=== PATIENT | female | born 1965 | race Caucasian/White ===

== ENCOUNTER 2021-11-14 22:41 | Emergency (ER) | payer OTHER ==
[~2021-11-14] VITALS: Ht 172.7 cm; Wt 75.2 kg
[~2021-11-14 22:41] MED LIST: HYDR-3068 PO; PROM25VI IJ; SULF500T7 PO
--- NOTE | 2021-11-14 22:44 | PHYS DOC ---
Past History Past Medical History: Other Past Medical History Ulcerative colitis Past Surgical History: No Surgical History Smoking: Non-smoker Alcohol Use: None Drug Use: None General Adult HPI: HPI: ".. I ve got ulcerative colitis.. I been having some cramping.. I did go to the urgent care earlier this week end .. .. and got fluids.. and a steroid taper.. I have a lot more bleeding today.. and cramping.." Patient is a 56 year old female who presents with above hx and complaints of blood in stool. Patient has long history of ulcerative colitis. Has not had a colonoscopy in excessive 7 years. Patient's last flare was 2018. Patient previously on Sulfasalazine. Patient has not been on any suppressive meds. No recent travel. No specific ill contacts. Has gotten COVID vaccination. Has not gotten a flu vaccination. No recent travel. No history of bad food intake. No history immunosuppression. Review of Systems: Review of Systems: Constitutional: Denies fever or chills Eyes: Denies change in visual acuity HENT: Denies nasal congestion or sore throat Respiratory: Denies cough or shortness of breath Cardiovascular: Denies chest pain or edema GI: Complains of abdominal pain, nausea, and some bright red blood in stools. Vomiting, bloody stools or diarrhea : Denies dysuria Musculoskeletal: Denies back pain or joint pain Integument: Denies rash Neurologic: Denies headache, focal weakness or sensory changes Endocrine: Denies polyuria or polydipsia Lymphatic: Denies swollen glands Psychiatric: Denies depression or anxiety Family History: Family History: Noncontributory to presentation Current Medications: Current Meds: See nursing for home meds Allergies: Allergies: Allergies Coded Allergies Type Severity Reaction Last Updated Verified No Known Drug Allergies 03/09/14 No Physical Exam: PE: Constitutional: Moderate acute distress, non-toxic appearance. [] HENT: Normocephalic, atraumatic, bilateral external ears normal, oropharynx moist, no oral exudates, nose normal. [] Eyes: PERRLA, EOMI, conjunctiva normal, no discharge. [] Neck: Normal range of motion, no tenderness, supple, no stridor. [] Cardiovascular:Heart rate regular rhythm, no murmur [] Lungs & Thorax: Bilateral breath sounds clear to auscultation [] Abdomen: Bowel sounds hyperactive, soft, generalized tenderness, no masses, no pulsatile masses. Generlized tenderness. Skin: Warm, dry, no erythema, no rash. [] Back: No tenderness, no CVA tenderness. [] Extremities: No tenderness, no cyanosis, no clubbing, ROM intact, no edema. [] Neurologic: Alert and oriented X 3, normal motor function, normal sensory function, no focal deficits noted. [] Psychologic: Affect anxious, judgement normal, mood normal. [] EKG: EKG: [] Radiology/Procedures: Radiology/Procedures: [[address] [address] IMAGING REPORT Signed PATIENT: RONALD HYMAN ACCOUNT: [id number] : 1965 LOCATION: ER AGE: 56 SEX: F EXAM STATUS: REG ER ORD. PHYSICIAN: LALITO CAMPOS MD REASON: UC, pain, bleeding Omni 300 75cc PROCEDURE: CT ABD PELV W/ORAL&IV CONTRAST CT ABDOMEN+PELVIS W History: Reason: UC, pain, bleeding Omni 300 75cc / Spl. Instructions: / History: Technique: After the administration of intravenous contrast, CT imaging was performed of the abdomen and pelvis. Multiplanar images are reviewed. Exposure: One or more of the following individualized dose reduction techniques were utilized for this examination: 1. Automated exposure control 2. Adjustment of the mA and/or kV according to patient size 3. Use of iterative reconstruction technique. Comparison: March 09, 2014 Findings: Lower chest: No consolidation or pleural effusion. Abdomen and pelvis: Right hepatic lobe cyst measures 1.7 cm. The liver, adrenal glands, pancreas and gallbladder are unremarkable. No biliary ductal dilatation. Patent portal vein. No renal calculus. No hydronephrosis. Decompressed urinary bladder. Multifocal colonic wall thickening moderate within the mid aspect and severe within the ascending colon. There is adjacent inflammatory changes. Normal appendix. No evidence of bowel obstruction. Oral contrast opacifies the distal small bowel. Small mesenteric and retroperitoneal lymph nodes. No ascites. No intra-abdominal abscess. No pneumatosis or pneumoperitoneum. Bones: No pathologic osseous lesions. Impression: 1. Multifocal colonic wall thickening with adjacent inflammatory changes most prominent within the ascending colon, compatible with history of ulcerative colitis. Electronically signed by: Yunier Negron DO (11/15/2021 1:29 AM) [facility] DICTATED AND SIGNED BY: YUNIER NEGRON DO DATE: 11/15/21124 CC: LALITO CAMPOS MD; PCP,NO ~MTH0 0 ][place] [address] IMAGING REPORT Signed PATIENT: RONALD HYMAN ACCOUNT: [id number] : 1965 LOCATION: ER AGE: 56 SEX: F EXAM STATUS: REG ER ORD. PHYSICIAN: LALITO CAMPOS MD REASON: Severe abdomen pain PROCEDURE: ACUTE ABDOMEN SERIES XR ABDOMEN COMP ACUTE History: Reason: Severe abdomen pain / Spl. Instructions: / History: Technique: Upright and supine views the abdomen. Comparison: None. Findings: No consolidation or pleural effusion. No pneumothorax. Normal heart size. No pneumoperitoneum. Mild small bowel gas. Air and stool scattered throughout the colon. Impression: 1. Nonobstructed bowel gas pattern. Electronically signed by: Yunier Negron DO (11/15/2021 12:13 AM) [facility] DICTATED AND SIGNED BY: YUNIER NEGRON DO DATE: 11/15/2111 CC: LALITO CAMPOS MD; PCP,NO ~MTH0 0 Heart Score: C/O Chest Pain: N/A HEART Score for Chest Pain: HEART Score for Chest Pain Response (Comments) Value History Slighlty/Non-Suspicious 0 ECG Normal 0 Age < 45 0 Risk Factors No Risk Factors 0 Troponin < Normal Limit 0 Total 0 Risk Factors: Risk Factors: DM, Current or recent (<one month) smoker, HTN, HLP, family history of CAD, obesity. Risk Scores: Score 0 - 3: 2.5% MACE over next 6 weeks - Discharge Home Score 4 - 6: 20.3% MACE over next 6 weeks - Admit for Clinical Observation Score 7 - 10: 72.7% MACE over next 6 weeks - Early Invasive Strategies Course & Med Decision Making: Course & Med Decision Making Pertinent Labs and Imaging studies reviewed. (See chart for details) Pt. refused COVID and Flu swabs/ Clear fluid diet only x 48 hrs. No solids or milk products . Clear fluids only. Take Meds as previously directed. Follow up with GI. Get colon scopic evaluation.. Start Apriso 0.375 qid. Flagyl 500 three times a day. Cipro 500 twice a day x 5 days. Zofran for active vomiting. Push simple fruit juices such as apple, grape, jello..ect. Must follow up. Get flu flu, COVID and Pneumovax vaccination went off the steroids Impression: 1. Abdomen Pain 2. Hx. Ulcerative Colitis 3. [id number] 4. Hypokalemia 3.1 5. Malnutrition albumin 2.9 Dragon Disclaimer: Dragon Disclaimer: This electronic medical record was generated, in whole or in part, using a voice recognition dictation system. Departure Departure: Referrals: PCP,LION (PCP) Scripts Ondansetron (ONDANSETRON ODT) 8 Mg Tab.rapdis 8 MG PO QIDPRN for n/v, #30 TAB Prov: LALITO CAMPOS MD 11/15/21 Mesalamine (APRISO) 0.375 Gm Cap.er.24h 0.375 GM PO QID for Colitis for 30 Days, #120 CAP.SR Prov: LALITO CAMPOS MD 11/15/21 Metronidazole (FLAGYL) 375 Mg Capsule 500 MG PO TID for colitis for 10 Days, #40 CAP Prov: LALITO CAMPOS MD 11/15/21 Ciprofloxacin Hcl (CIPRO) 500 Mg Tablet 500 MG PO BID for colitis for 5 Days, #10 TAB Prov: LALITO CAMPOS MD 11/15/21 LALITO CAMPOS MD Nov 14, 2021 22:44
[2021-11-14] MEDS ORDERED: ONDANSETRON PF 4 MG/2 ML VIAL. IVP ONE (23:00)
[2021-11-14] MEDS ORDERED: FAMOTIDINE 20 MG/2 ML VIAL IVP ONE (23:00)
[2021-11-14] MEDS ORDERED: methylPREDNISolone SOD SUCC PF 125 MG/2 ML VIAL. IV ONE (23:00)
[2021-11-14] MEDS ORDERED: IV RINGERS SOLUTION,LACTATED 1,000 ML IV SCH (23:00)
[2021-11-14] MEDS ORDERED: IOHEXOL 240 MG/ML 50ML VIAL. ONE (23:12)
[2021-11-14] MEDS ORDERED: IOHEXOL 300 MG/ML 75 ML VIAL. IV ONE (23:15)
[2021-11-14] MEDS ORDERED: CONTRAST GIVEN. MC PRN (23:15)
[2021-11-14] MEDS ORDERED: MORPHINE SULFATE 10 MG/ML SYRINGE. SQ ONE (23:30)
[2021-11-14 23:42] LABS: BASO % 0 % (0-3); EOS # 0.1 x10^3/uL (0.0-0.7); EOS % 1 % (0-3); HEMOGLOBIN 12.8 g/dL (12.0-15.5); LYMPH # 3.1 x10^3/uL (1.0-4.8); LYMPH % 17 % (24-48); MEAN CORPUSCULAR HEMOGLOBIN 29 pg (25-35); MEAN CORPUSCULAR HGB CONC 34 g/dL (31-37); MEAN CORPUSCULAR VOLUME 86 fL (79-100); MONO # 1.2 x10^3/uL (0.0-1.1); MONO % 6 % (0-9); NEUT # 14.2 x10^3uL (1.8-7.7); NEUT % 76 % (31-73); PLATELET COUNT 380 x10^3/uL (140-400); RED BLOOD COUNT 4.43 x10^6/uL (3.50-5.40); RED CELL DISTRIBUTION WIDTH 12.8 % (11.5-14.5); WHITE BLOOD COUNT 18.7 x10^3/uL (4.0-11.0)
[2021-11-14 23:43] LABS: BARBITURATES NEG (NEG); BENZODIAZEPINES NEG (NEG); CANNABINOIDS NEG (NEG); COCAINE NEG (NEG); METHADONE NEG (NEG); OPIATES POS (NEG); PHENCYCLIDINE NEG (NEG)
[2021-11-14 23:44] LABS: CALCIUM 8.6 mg/dL (8.5-10.1); GFR 57.1; POTASSIUM 3.1 mmol/L (3.5-5.1)
[2021-11-14 23:46] LABS: AMPHETAMINE/METHAMPHETAMINE NEG (NEG)
[2021-11-14 23:51] LABS: BACTERIA,URINE 0 /HPF (0-FEW); BILIRUBIN,URINE NEG (NEG); CLARITY,URINE CLEAR; COLOR,URINE YELLOW; GLUCOSE,URINE 100 mg/dL (NEG); NITRITE,URINE NEG (NEG); SQUAMOUS EPITHELIAL CELL,UR OCC /LPF; UROBILINOGEN,URINE 0.2 mg/dL (0.2 mg/dL); WBC,URINE OCC /HPF (0-4)
[2021-11-14 23:52] LABS: ALBUMIN 2.9 g/dL (3.4-5.0); DIRECT BILIRUBIN 0.1 mg/dL (0.0-0.2); TOTAL BILIRUBIN 0.3 mg/dL (0.2-1.0); TOTAL PROTEIN 6.5 g/dL (6.4-8.2)
--- NOTE | 2021-11-15 00:15 | RAD ---
XR ABDOMEN COMP ACUTE History: Reason: Severe abdomen pain / Spl. Instructions: / History: Technique: Upright and supine views the abdomen. Comparison: None. Findings: No consolidation or pleural effusion. No pneumothorax. Normal heart size. No pneumoperitoneum. Mild s mall bowel gas. Air and stool scattered throughout the colon. Impression: 1. Nonobstructed bowel gas pattern. Electronically signed by: Yunier Dorman DO (11/15/2021 12:13 AM) [facility]
[2021-11-15] MEDS ORDERED: PROCHLORPERAZINE 10 MG/2 ML VIAL. IV ONE (00:45)
[2021-11-15] MEDS ORDERED: MORPHINE SULFATE 10 MG/ML SYRINGE. SQ ONE (00:45)
[2021-11-15] MEDS ORDERED: diphenhydrAMINE 50 MG/ML VIAL IVP ONE (00:45)
[2021-11-15 01:14] LABS: % BANDS 26 % (0-9); % LYMPHS 20 % (24-48); % METAS 4 % (0-0); % MONOS 9 % (0-10); % SEGS 41 % (35-66); PLT ESTIMATE ADEQUATE (ADEQUATE)
--- NOTE | 2021-11-15 01:32 | RAD ---
CT ABDOMEN+PELVIS W History: Reason: UC, pain, bleeding Omni 300 75cc / Spl. Instructions: / History: Technique: After the administration of intravenous contrast, CT imaging was performed of the abdomen and pelvis. Multiplanar images are reviewed. Exposure: One or more of the following individualized dose reduction techniques were utilized for thi s examination: 1. Automated exposure control 2. Adjustment of the mA and/or kV according to patient size 3. Use of iterative reconstruction technique. Comparison: March 09, 2014 Findings: Lower chest: No consolidation or pleural effusion. Abdomen and pelvis: Right hepatic lobe cyst measures 1.7 cm. The liver, adrenal glands, pancreas and gallbladder are unremarkable. No biliary ductal dilatation. Patent portal vein. No renal calculus. No hydronephrosis. Decompressed urinary bladder. Multifocal colonic wall thickening moderate within the mid aspect and severe within the ascending col on. There is adjacent inflammatory changes. Normal appendix. No evidence of bowel obstruction. Oral c ontrast opacifies the distal small bowel. Small mesenteric and retroperitoneal lymph nodes. No ascite s. No intra-abdominal abscess. No pneumatosis or pneumoperitoneum. Bones: No pathologic osseous lesions. Impression: 1. Multifocal colonic wall thickening with adjacent inflammatory changes most prominent within the a scending colon, compatible with history of ulcerative colitis. Electronically signed by: Yunier Dorman DO (11/15/2021 1:29 AM) [facility]
[2021-11-15] MEDS ORDERED: CIPR500T94 PO (01:59)
[2021-11-15] MEDS ORDERED: MESA0.372 PO (01:59)
[2021-11-15] MEDS ORDERED: METR375C PO (01:59)
[2021-11-15] MEDS ORDERED: ONDA8TAB15 PO (01:59)
[2021-11-15] MEDS ORDERED: CIPROFLOXACIN HCL 500 MG TABLET PO ONE (02:00)
[2021-11-15] MEDS ORDERED: metroNIDAZOLE 500 MG TABLET PO ONE (02:00)
[2021-11-15] MEDS ORDERED: ONDANSETRON PF 4 MG/2 ML VIAL. IVP ONE (02:00)
[2021-11-15] MEDS ORDERED: IV RINGERS SOLUTION,LACTATED 1,000 ML IV ONE (02:15)
[2021-11-15 03:08] VITALS: BP 112/58
== END 2021-11-15 03:15 | disposition home or self-care (01) ==
LOC: ER 22:41
DX: D72.829 Elevated white blood cell count, unspecified (principal); E87.6 Hypokalemia; E46 Unspecified protein-calorie malnutrition; Z68.25 Body mass index [BMI] 25.0-25.9, adult
CPT/HCPCS: 36415; 74022; 74177; 80048; 80076; 80307; 81001; 82150; 83690; 84484; 85007; 85025; 85610; 85730; 96361; 96372; 96374; 96375; 99285; J0780; J1200; J2270; J2405; J2930; J3490; J7120; Q9967

== ENCOUNTER 2021-11-18 01:39 | Emergency (ER) | payer OTHER ==
[~2021-11-18] VITALS: Ht 172.7 cm; Wt 73.5 kg
[~2021-11-18 01:39] MED LIST changes: +CIPR500T94 PO; +MESA0.372 PO; +METR375C PO; +ONDA8TAB15 PO
--- NOTE | 2021-11-18 02:02 | PHYS DOC ---
Past History Past Medical History: Other Additional Past Medical Histor: Ulcerative colitis Past Surgical History: No Surgical History Smoking: Non-smoker Alcohol Use: None Drug Use: None General Adult EDM: Chief Complaint: MULTIPLE COMPLAINTS HPI: HPI: "..I am still having diarrhea.. I did not take the Flagyl or Cipro.. or Mesalamine.. I am still take the Prednisone.. and started Sulfasamine Patient is a 56 year old female who presents with above hx and complaints abdomen pain and diarrhea. Patient still on prednisone taper. Has remained on clear fluid diet. However is not taking Flagyl, Cipro or mesalamine. Has plans to start back on sulfasalamine. Patient has known ulcerative colitis. Presents again tonight for IV hydration and electrolytes. Patient states she did not take any of the meds prescribed because she is afraid that it would make her abdomen upset. Review of Systems: Review of Systems: Constitutional: Denies fever or chills Eyes: Denies change in visual acuity HENT: Denies nasal congestion or sore throat Respiratory: Denies cough or shortness of breath Cardiovascular: Denies chest pain or edema GI: Complains of abdominal pain, nausea, vomiting, complains of diarrhea : Denies dysuria Musculoskeletal: Denies back pain or joint pain Integument: Denies rash Neurologic: Denies headache, focal weakness or sensory changes Endocrine: Denies polyuria or polydipsia Lymphatic: Denies swollen glands Psychiatric: Denies depression or anxiety Family History: Family History: Noncontributory to presentation Current Medications: Current Meds: See nursing for home meds Allergies: Allergies: Allergies Coded Allergies Type Severity Reaction Last Updated Verified No Known Drug Allergies 03/09/14 No Physical Exam: PE: Constitutional: Moderate acute distress, non-toxic appearance. [] HENT: Normocephalic, atraumatic, bilateral external ears normal, oropharynx dry,, no oral exudates, nose normal. [] Eyes: PERRLA, EOMI, conjunctiva normal, no discharge. [] Neck: Normal range of motion, no tenderness, supple, no stridor. [] Cardiovascular:Heart rate regular rhythm, no murmur []. The bedside monitor shows a sinus rhythm. Lungs & Thorax: Bilateral breath sounds clear to auscultation [] Abdomen: Bowel sounds hyperactive, soft, generalized tenderness, no masses, no pulsatile masses. [] Skin: Warm, dry, no erythema, no rash. [] Back: No tenderness, no CVA tenderness. [] Extremities: No tenderness, no cyanosis, no clubbing, ROM intact, no edema. No cording. No Trousseau sign. Neurologic: Alert and oriented X 3, normal motor function, normal sensory function, no focal deficits noted. [] Psychologic: Affect anxious, judgement normal, mood depressed. EKG: EKG: My interpretation EKG shows a sinus rhythm at 71 bpm. No acute morphology time of EKG is 301 hours [] No U waves noted on EKG. Radiology/Procedures: Radiology/Procedures: [][place] [address] IMAGING REPORT Signed PATIENT: RONALD HYMAN ACCOUNT: [id number] : 1965 LOCATION: ER AGE: 56 SEX: F EXAM STATUS: REG ER ORD. PHYSICIAN: LALITO CAMPOS MD REASON: nv, hx colitis PROCEDURE: ACUTE ABDOMEN SERIES XR ABDOMEN COMP ACUTE History: Reason: nv, hx colitis / Spl. Instructions: / History: Technique: Supine and upright view the abdomen. Comparison: November 14, 2021 Findings: No consolidation or pleural effusion. No pneumothorax. Normal heart size. No pneumoperitoneum. Mild small bowel gas. Air and stool scattered throughout the colon. No air-fluid levels. Impression: 1. Nonobstructed bowel gas pattern. Electronically signed by: Yunier Dorman DO (11/18/2021 3:07 AM) [facility] DICTATED AND SIGNED BY: YUNIER DORMAN DO DATE: 11/18/21 0305 CC: KAROLINA PILLAI MD; LALITO CAMPOS MD ~MTH0 0 Heart Score: C/O Chest Pain: N/A HEART Score for Chest Pain: HEART Score for Chest Pain Response (Comments) Value History Slighlty/Non-Suspicious 0 ECG Normal 0 Age >45 - < 65 1 Risk Factors 1 or 2 Risk Factors 1 Troponin < Normal Limit 0 Total 2 Risk Factors: Risk Factors: DM, Current or recent (<one month) smoker, HTN, HLP, family history of CAD, obesity. Risk Scores: Score 0 - 3: 2.5% MACE over next 6 weeks - Discharge Home Score 4 - 6: 20.3% MACE over next 6 weeks - Admit for Clinical Observation Score 7 - 10: 72.7% MACE over next 6 weeks - Early Invasive Strategies Course & Med Decision Making: Course & Med Decision Making Pertinent Labs and Imaging studies reviewed. (See chart for details) Patient given 2 L of LR. Patient given Zofran IV x2. Patient encouraged to stay on a clear fluid diet only for the next couple days. No solids. No milk products. Again encourage patient to take antibiotics as directed. Patient to push fluids particularly fluids high in potassium. Patient's potassium was supplemented p.o. Advised patient if further problems will need to follow the hospital has GI electrical controls technician and possible admission. Patient encouraged to take meds. As directed. We will add cholestyramine as a bulk agent for her stools. Sample stool was sent for C. difficile. Patient to follow-up pending culture for C. difficile. The patient to follow-up GI. Additional prescription for Zofran 8 mg up to 4 times a day. Warned patient must get control of this ulcerative colitis. If this continued to deteriorate she could have a perforation, GI bleed, or even need of colon resection. Advised patient must follow with a hospital that has GI services such at [facility], [facility],. If no improvement advised patient see will need to be admitted and placed on n.p.o. status. With consult to GI. Pt. at this time defers admission. Impression: 1. Abdomen pain 2. Known ulcerative colitis exacerbation 3. Dehydration 4. Critical hyperal kalemia 2.5 5. Leukocytosis 25.9 6. Malnutrition albumin 2.8 [] Dragon Disclaimer: [place]mar Disclaimer: This electronic medical record was generated, in whole or in part, using a voice recognition dictation system. Departure Departure: Referrals: KAROLINA PILLAI MD (PCP) Scripts Ondansetron (ONDANSETRON ODT) 4 Mg Tab.rapdis 8 MG PO QIDPRN PRN for nv, #30 TAB Prov: LALITO CAMPOS MD 11/18/21 Ondansetron (ONDANSETRON ODT) 4 Mg Tab.rapdis 8 MG PO qidp for nv, #30 TAB Prov: LALITO CAMPOS MD 11/18/21 Cholestyramine (CHOLESTYRAMINE RESIN) 5 Gm Powder 5 GM MC TID for diarrhea for 30 Days, MISC Prov: LALITO CAMPOS MD 11/18/21 Dragon Disclaimer This chart was dictated in whole or in part using Voice Recognition software in a busy, high-work load, and often noisy Emergency Department environment. It may contain unintended and wholly unrecognized errors or omissions. LALITO CAMPOS MD Nov 18, 2021 02:02
[2021-11-18] MEDS ORDERED: KETOROLAC 30 MG/ML VIAL. IVP ONE (02:30)
[2021-11-18] MEDS ORDERED: FAMOTIDINE 20 MG/2 ML VIAL IVP ONE (02:30)
[2021-11-18] MEDS ORDERED: IV RINGERS SOLUTION,LACTATED 1,000 ML IV SCH (02:30)
[2021-11-18] MEDS ORDERED: MORPHINE SULFATE 10 MG/ML SYRINGE. SQ ONE (02:30)
[2021-11-18] MEDS ORDERED: ONDANSETRON PF 4 MG/2 ML VIAL. IVP ONE ×2 (02:30→06:30)
[2021-11-18 02:33] LABS: BACTERIA,URINE MOD /HPF (0-FEW); BILIRUBIN,URINE NEG (NEG); CLARITY,URINE CLEAR; COLOR,URINE YELLOW; GLUCOSE,URINE 100 mg/dL (NEG); NITRITE,URINE NEG (NEG); SQUAMOUS EPITHELIAL CELL,UR MOD /LPF; UROBILINOGEN,URINE 0.2 mg/dL (0.2 mg/dL)
[2021-11-18 02:34] LABS: HYALINE CASTS, URINE MANY /HPF
[2021-11-18] MEDS ORDERED: ONDA4TAB12 PO ×2 (02:47→04:59)
[2021-11-18] MEDS ORDERED: CHOL5POW MC (02:47)
--- NOTE | 2021-11-18 03:10 | RAD ---
XR ABDOMEN COMP ACUTE History: Reason: nv, hx colitis / Spl. Instructions: / History: Technique: Supine and upright view the abdomen. Comparison: November 14, 2021 Findings: No consolidation or pleural effusion. No pneumothorax. Normal heart size. No pneumoperitoneum. Mild s mall bowel gas. Air and stool scattered throughout the colon. No air-fluid levels. Impression: 1. Nonobstructed bowel gas pattern. Electronically signed by: Yunier Dorman DO (11/18/2021 3:07 AM) [facility]
[2021-11-18 03:14] LABS: BASO % 0 % (0-3); EOS # 0.2 x10^3/uL (0.0-0.7); EOS % 1 % (0-3); HEMATOCRIT 37.9 % (36.0-47.0); HEMOGLOBIN 12.7 g/dL (12.0-15.5); LYMPH # 2.5 x10^3/uL (1.0-4.8); LYMPH % 10 % (24-48); MEAN CORPUSCULAR HEMOGLOBIN 29 pg (25-35); MEAN CORPUSCULAR HGB CONC 34 g/dL (31-37); MEAN CORPUSCULAR VOLUME 86 fL (79-100); MONO # 0.7 x10^3/uL (0.0-1.1); MONO % 3 % (0-9); NEUT # 22.5 x10^3uL (1.8-7.7); NEUT % 87 % (31-73); PLATELET COUNT 336 x10^3/uL (140-400); RED BLOOD COUNT 4.42 x10^6/uL (3.50-5.40); RED CELL DISTRIBUTION WIDTH 13.1 % (11.5-14.5); WHITE BLOOD COUNT 25.9 x10^3/uL (4.0-11.0)
[2021-11-18 03:47] LABS: % BANDS 7 % (0-9); % EOS 1 % (0-5); % LYMPHS 19 % (24-48); % MONOS 7 % (0-10); % SEGS 66 % (35-66); ALBUMIN 2.8 g/dL (3.4-5.0); CALCIUM 8.2 mg/dL (8.5-10.1); CREATININE 1.2 mg/dL (0.6-1.0); DIRECT BILIRUBIN 0.1 mg/dL (0.0-0.2); GFR 46.3; TOTAL BILIRUBIN 0.4 mg/dL (0.2-1.0); TOTAL PROTEIN 6.4 g/dL (6.4-8.2)
[2021-11-18 03:48] LABS: PLT ESTIMATE ADEQUATE (ADEQUATE)
[2021-11-18 03:49] LABS: PLATELET CLUMP PRESENT
[2021-11-18 03:55] LABS: POTASSIUM 2.5 mmol/L (3.5-5.1)
--- NOTE | 2021-11-18 04:37 | EKG ---
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
[2021-11-18] MEDS ORDERED: IV RINGERS SOLUTION,LACTATED 1,000 ML IV ONE (05:30)
[2021-11-18] MEDS ORDERED: POTASSIUM CHLORIDE 20 MEQ TABLET.ER. PO ONE (05:30)
[2021-11-18 06:03] VITALS: BP 116/64
== END 2021-11-18 06:25 | disposition home or self-care (01) ==
LOC: ER 01:39
DX: K51.90 Ulcerative colitis, unspecified, without complications (principal); E86.0 Dehydration; E87.5 Hyperkalemia; D72.829 Elevated white blood cell count, unspecified; E46 Unspecified protein-calorie malnutrition; Z68.24 Body mass index [BMI] 24.0-24.9, adult
CPT/HCPCS: 36415; 74022; 80048; 80076; 81001; 82150; 82550; 83690; 84484; 85007; 85025; 85610; 85730; 87086; 87493; 93005; 96361; 96372; 96374; 96375; 96376; 99284; J1885; J2270; J2405; J3490; J7120